=== PATIENT | male | born 1970 | race Two or more races ===

== ENCOUNTER 2019-06-12 07:16 | Inpatient (IN) | payer OTHER ==
[~2019-06-12] VITALS: Ht 175.3 cm; Wt 71.0 kg
[2019-06-12 07:49] LABS: Basophils # (auto) 0.1 uL; Basophils % (auto) 0.7 % (0.0-2.0); Eosinophils # (auto) 0.5 uL; Eosinophils % (auto) 6.7 % (0.0-7.0); Hematocrit 46.6 % (41.0-53.0); Hemoglobin 15.2 g/dL (13.5-17.5); Lymphocytes % (auto) 27.8 % (10.0-50.0); Mean Corpuscular Hemoglobin 27.2 pg (28.0-32.0); Mean Corpuscular Hgb Conc. 32.7 g/dL (32.0-36.0); Mean Corpuscular Volume 83.3 fL (80.0-100.0); Monocytes # (auto) 0.4 uL; Monocytes % (auto) 4.9 % (0.0-12.0); Neutrophils # (auto) 4.3 uL; Neutrophils % (auto) 59.9 % (37.0-80.0); Platelet Count (auto) 167 10^3/uL (140-450); Red Blood Cells 5.59 10^6/uL (4.5-5.90); Red Cell Distribution Width 13.7 % (11.8-14.3); White Blood Cell 7.2 10^3/uL (4.4-10.8)
[2019-06-12] MEDS ORDERED: NITROGLYCERIN 0.4 MG SL TAB SL ONE (08:00)
[2019-06-12] MEDS ORDERED: ASPirin 81 mg TAB PO ONE (08:00)
[2019-06-12 08:10] LABS: Alanine Aminotransferase 23 U/L (16-61); Albumin 3.6 g/dL (3.4-5.0); Anion Gap 9 (5-15); Aspartate Aminotransferase 7 U/L (15-37); BUN/Creatinine Ratio 15.8; Blood Urea Nitrogen 12 mg/dL (7-18); Calcium 8.1 mg/dL (8.5-10.1); Carbon Dioxide 23 mmol/L (21-32); Chloride 110 mmol/L (98-107); GFR African American 141 mL/min; GFR Non-African American 117 mL/min; Glucose 244 mg/dL (74-106); Sodium 142 mmol/L (136-145)
[2019-06-12 08:14] LABS: Alkaline Phosphatase 87 U/L (45-117); Bilirubin, Total 0.6 mg/dL (0.2-1.0); Total Protein 7.1 g/dL (6.4-8.2)
[2019-06-12] MEDS: SODIUM CHLORIDE 0.9% 1,000 ML IV SCH (09:03)
[2019-06-12] MEDS ORDERED: PROMETHAZINE HCL 25 MG/ML 1ML IV PRN (09:15)
[2019-06-12] MEDS ORDERED: MORPHINE SULF INJ 2 MG/ML SYRINGE 1ML IV PRN (09:15)
[2019-06-12] MEDS ORDERED: DEXTROSE (50%) 50ML SYRG IV PRN (09:15)
[2019-06-12] MEDS ORDERED: LACTULOSE 20Gm/30ML SOLN PO PRN (09:15)
[2019-06-12] MEDS ORDERED: LORazepam 0.5 MG TAB PO PRN (09:15)
[2019-06-12] MEDS ORDERED: traMADol HCL 50 MG TAB PO PRN (09:15)
[2019-06-12] MEDS ORDERED: ACETAMINOPHEN 500 MG TAB PO PRN (09:15)
[2019-06-12] MEDS ORDERED: NITROGLYCERIN 0.4 MG SL TAB SL PRN (09:15)
[2019-06-12] MEDS: ASPirin 81 mg TAB PO SCH (09:46)
[2019-06-12] MEDS: PANTOPRAZOLE 40 MG TAB PO SCH (09:46)
[2019-06-12] MEDS: METOPROLOL TARTRATE 25 MG TAB PO SCH ×2 (09:46→23:22)
[2019-06-12] MEDS: ENALAPRIL MALEATE 10 MG TAB PO SCH (09:46)
[2019-06-12] MEDS: NITROGLYCERIN 0.2MG/HR TOPICAL PATCH TD SCH (09:46)
[2019-06-12] MEDS: ENOXAPARIN SOD 40 MG/0.4 ML SYRINGE SC SCH (09:46)
[2019-06-12] MEDS: ACCU-CHEK COMFORT CURVE STRIP VI SCH ×3 (11:37→22:00)
[2019-06-12] MEDS: InsuLIN REG 1unit/0.01ml Soln (100units/ml) SC SCH ×3 (11:52→23:55)
[2019-06-12] MEDS: ATORVASTATIN 20 MG TAB PO SCH (23:20)
[2019-06-12 23:55] VITALS: BP 113/73
[2019-06-13] VITALS (8 sets, daily range): BP systolic 105–122; BP diastolic 70–79
--- NOTE | 2019-06-13 | NUR ---
Telemetry admit from ER LARISSA RAMIREZ admitted to Telemetry unit after SBAR received. Patient oriented to Stefany Pérez RN primary RN, unit, room, bed, and unit policies regarding patient care and visiting hours. Patient now on continuous telemetry monitoring, tele box # 40 and telemetry reading on arrival to unit is SR. Patient weighed by bedscale and encouraged to call if they need something. All questions and concerns addressed, patient verbalized understanding, patient verbalized understanding Note: []
[2019-06-13] MEDS ORDERED: METF-370 PO (00:27)
[2019-06-13] MEDS ORDERED: GLIP-115 PO (00:27)
[2019-06-13] MEDS ORDERED: ASPI81TA27 PO (00:27)
[2019-06-13] MEDS ORDERED: CHOL20007 PO (00:27)
[2019-06-13] MEDS ORDERED: PIO30T PO (00:27)
[2019-06-13] MEDS ORDERED: ATOR40TA52 PO (00:27)
[2019-06-13] MEDS ORDERED: ENAL2.5T PO (00:27)
[2019-06-13] MEDS ORDERED: FENO160T8 PO (00:27)
[2019-06-13] MEDS: ACCU-CHEK COMFORT CURVE STRIP VI SCH ×4 (06:07→21:47)
[2019-06-13] MEDS: SODIUM CHLORIDE 0.9% 1,000 ML IV SCH ×4 (06:07→18:56)
[2019-06-13] MEDS: InsuLIN REG 1unit/0.01ml Soln (100units/ml) SC SCH ×4 (06:08→22:17)
[2019-06-13 07:14] LABS: Cholesterol 181 mg/dL (< 200); Triglycerides 273 mg/dL (< 150)
[2019-06-13 07:18] LABS: HDL Cholesterol 33 mg/dL (40-59); LDL Cholesterol 105 mg/dL (< 100)
--- NOTE | 2019-06-13 07:25 | NUR ---
Opening Shift Note Assumed care of patient, awake and alert, sitting up in bed. No S/S of distress/SOB, no pain noted or reported. Respirations are even and unlabored on RA. Updated on POC and instructed to call for assistance as needed, pt. verbalized understanding. Bed locked in lowest position, side rails up x2, call light within reach. Will continue to monitor for changes Q1hr and PRN.
[2019-06-13] MEDS: NITROGLYCERIN 0.2MG/HR TOPICAL PATCH TD SCH (09:18)
[2019-06-13] MEDS: ENALAPRIL MALEATE 10 MG TAB PO SCH (09:19)
[2019-06-13] MEDS: ENOXAPARIN SOD 40 MG/0.4 ML SYRINGE SC SCH (09:19)
[2019-06-13] MEDS: PANTOPRAZOLE 40 MG TAB PO SCH (09:19)
[2019-06-13] MEDS: METOPROLOL TARTRATE 25 MG TAB PO SCH ×2 (09:20→21:46)
[2019-06-13] MEDS: ASPirin 81 mg TAB PO SCH (09:20)
--- NOTE | 2019-06-13 18:59 | NUR ---
CARE ENDORSED TO PEDIATRICIAN ACTIVE PRACTICE RN
--- NOTE | 2019-06-13 19:30 | NUR ---
Opening Shift Note Assumed care of patient, awake and alert, sitting up in bed. No S/S of distress/SOB, no pain reported. Respirations are even and unlabored on RA. Updated on POC and instructed to call for assistance as needed, pt. verbalized understanding. Bed locked in lowest position, call light within reach. Will continue to monitor for changes Q1hr and PRN.
[2019-06-13] MEDS: ATORVASTATIN 20 MG TAB PO SCH (21:45)
[2019-06-14 04:30] VITALS: BP 117/76
[2019-06-14] MEDS: ACCU-CHEK COMFORT CURVE STRIP VI SCH ×4 (06:33→21:50)
[2019-06-14] MEDS: InsuLIN REG 1unit/0.01ml Soln (100units/ml) SC SCH ×4 (06:34→21:51)
[2019-06-14 07:30] LABS: Calcium 8.3 mg/dL (8.5-10.1); Magnesium 2.1 mg/dL (1.6-2.6); Potassium 3.9 mmol/L (3.5-5.1)
[2019-06-14 07:32] LABS: BUN/Creatinine Ratio 19.4; Basophils # (auto) 0 uL; Basophils % (auto) 0.5 % (0.0-2.0); Eosinophils # (auto) 0.6 uL; Eosinophils % (auto) 7.9 % (0.0-7.0); Hematocrit 42.8 % (41.0-53.0); Hemoglobin 14.4 g/dL (13.5-17.5); Lymphocytes # (auto) 2.2 uL; Lymphocytes % (auto) 28.5 % (10.0-50.0); Mean Corpuscular Hgb Conc. 33.6 g/dL (32.0-36.0); Mean Corpuscular Volume 83.4 fL (80.0-100.0); Monocytes # (auto) 0.5 uL; Neutrophils # (auto) 4.5 uL; Neutrophils % (auto) 57.1 % (37.0-80.0); Nucleated Red Blood Cells % 0.1 %; Platelet Count (auto) 189 10^3/uL (140-450); Red Blood Cells 5.14 10^6/uL (4.5-5.90); Red Cell Distribution Width 13.4 % (11.8-14.3); White Blood Cell 7.9 10^3/uL (4.4-10.8)
[2019-06-14 08:00] VITALS: BP 122/73
[2019-06-14] MEDS: NITROGLYCERIN 0.2MG/HR TOPICAL PATCH TD SCH (10:00)
--- NOTE | 2019-06-14 10:16 | NUR ---
Opening Shift Note Assumed care of patient, awake, alert and oriented X4. No S/S of distress/SOB or pain. Tele# 40, sinus rhythm @ 85 bpm. IV to left antecubital, 20 gauge, patent and saline locked. Instructed on POC and to call for assist PRN, verbalized understanding. Bed locked, in lowest position, call light within reach, will continue to monitor for changes Q1hr and PRN.
[2019-06-14] MEDS: ENALAPRIL MALEATE 10 MG TAB PO SCH (11:25)
[2019-06-14] MEDS: METOPROLOL TARTRATE 25 MG TAB PO SCH ×2 (11:25→21:50)
[2019-06-14] MEDS: PANTOPRAZOLE 40 MG TAB PO SCH (11:26)
[2019-06-14] MEDS: ASPirin 81 mg TAB PO SCH (11:26)
[2019-06-14] MEDS: ENOXAPARIN SOD 40 MG/0.4 ML SYRINGE SC SCH (11:27)
[2019-06-14 14:12] VITALS: BP 137/78
[2019-06-14 16:32] VITALS: BP 119/70
--- NOTE | 2019-06-14 18:59 | NUR ---
Care endorsed to JUAN MIGUEL Becker, night nurse.
--- NOTE | 2019-06-14 19:35 | NUR ---
Opening Shift Note Assumed care of patient, awake and alert. No S/S of distress/SOB or pain. Instructed on POC and to be NPO after MN, for Stress test tomorrow. Instructed to call for assist PRN, patient verbalized understanding, call light within reach, will continue to monitor for changes Q1hr and PRN.
[2019-06-14] MEDS: ATORVASTATIN 20 MG TAB PO SCH (21:50)
[2019-06-14 22:00] VITALS: BP 126/72
[2019-06-14] MEDS: SODIUM CHLORIDE 0.9% 1,000 ML IV SCH (22:50)
[2019-06-15 05:00] VITALS: BP 140/76
[2019-06-15] MEDS: ACCU-CHEK COMFORT CURVE STRIP VI SCH ×3 (05:50→16:35)
[2019-06-15] MEDS: InsuLIN REG 1unit/0.01ml Soln (100units/ml) SC SCH ×3 (05:50→16:35)
--- NOTE | 2019-06-15 06:10 | NUR ---
IV insertion IV access obtained, via clean sterile technique by inserting 22 gauge catheter at . IV secured properly. No trauma to site. Patient tolerated well. NOTE: []
--- NOTE | 2019-06-15 07:46 | NUR ---
Opening Patient in bed, asleep, bed in lowest position, call light within reach. No distress noted at this time. Will f/u with morning assessment. Re Cardiac saw patient yesterday, today pending stress test to r/o CAD per Re's note. CXR negative Echo pending Crea 0.67 D dimer negative BNP 2.9 Trop negative x 3 Patient is NPO per stress test. WIll continue to monitor this patient
[2019-06-15] MEDS ORDERED: ADENOSINE 60 MG in GIVE UN-DILUTED 0 ML IV STA (08:20)
[2019-06-15 09:00] VITALS: BP 122/80
[2019-06-15] MEDS: ASPirin 81 mg TAB PO SCH (09:54)
[2019-06-15] MEDS: PANTOPRAZOLE 40 MG TAB PO SCH (09:54)
[2019-06-15] MEDS: ENOXAPARIN SOD 40 MG/0.4 ML SYRINGE SC SCH ×2 (09:55→10:00)
[2019-06-15] MEDS ORDERED: GEMFIBROZIL 600 MG TAB PO SCH (10:00)
[2019-06-15] MEDS: ENALAPRIL MALEATE 10 MG TAB PO SCH (10:00)
[2019-06-15] MEDS: METOPROLOL TARTRATE 25 MG TAB PO SCH (10:00)
[2019-06-15 13:00] VITALS: BP 119/83
--- NOTE | 2019-06-15 15:56 | NUR ---
trent (cardio) cleared patient per md Reed's clearance, he is able to discharge today. Will f/u with orders
[2019-06-15 17:00] VITALS: BP 121/87
[2019-06-15 17:28] VITALS: BP 121/87
--- NOTE | 2019-06-15 18:07 | NUR ---
CLOSING Discharge instructions given as ordered. Encourage to follow up with PMD as instructed. All questions and concerns addressed. Patient verbalized understanding. Medication reconciliation form completed and copy given to patient. IV removed with catheter intact, pressure dressing applied. Telemetry unit returned to ICU. Patient taken to vehicle via wheelchair with all personal belongings, accompanied by staff. No distress noted at time of departure.
== END 2019-06-15 18:30 | disposition home or self-care (01) | DRG 311 ==
LOC: ER 07:16 → TELE 07:17 → TELE-WESTW 22:37
PROVIDERS: ADMIT Internal Medicine; ATTEND Internal Medicine
DX: I24.9 Acute ischemic heart disease, unspecified (principal); E78.00 Pure hypercholesterolemia, unspecified; E78.5 Hyperlipidemia, unspecified; E11.65 Type 2 diabetes mellitus with hyperglycemia; I10 Essential (primary) hypertension; Z82.49 Family history of ischemic heart disease and other diseases of the circulatory system; Z83.3 Family history of diabetes mellitus
CPT/HCPCS: 36415; 71046; 78452; 80048; 80053; 80061; 82550; 82962; 83036; 83735; 83880; 84484; 85025; 85379; 85652; 86141; 93005; 93017; 93306; G0378; J0153; J1815